=== PATIENT | female | born 1960 | race African-American/Black ===

== ENCOUNTER 2019-04-02 22:01 | Emergency (ER) | payer OTHER, MEDICAID ==
[~2019-04-02] VITALS: Ht 170.2 cm; Wt 90.7 kg
[~2019-04-02 22:01] MED LIST: CITA10TA59 PO; CYCL-181 PO; FURO40TA4 PO; HYDR-1421; IBUP800T24 PO; POTA8TAB2 PO; TRAM50TA2 PO
[2019-04-02 22:16] VITALS: BP 152/86
[2019-04-02] MEDS ORDERED: ACETAMINOPHEN 500 MG TAB PO ONE (23:00)
== END 2019-04-03 00:37 | disposition home or self-care (01) ==
LOC: EDBD 22:01 → ER 22:01
DX: S63.502A Unspecified sprain of left wrist, initial encounter (principal); S73.102A Unspecified sprain of left hip, initial encounter; Z88.0 Allergy status to penicillin; Z79.899 Other long term (current) drug therapy; W18.39XA Other fall on same level, initial encounter; Y93.89 Activity, other specified; Y99.8 Other external cause status; Y92.89 Other specified places as the place of occurrence of the external cause
CPT/HCPCS: 73110; 73502

== ENCOUNTER 2023-04-11 16:11 | Emergency (ER) | payer OTHER, MEDICAID ==
[~2023-04-11] VITALS: Ht 165.1 cm; Wt 98.0 kg
[~2023-04-11 16:11] MED LIST changes: -CITA10TA59 PO; +CITA10TA8 PO; +IBUP-1456 PO; -IBUP800T24 PO; -POTA8TAB2 PO; +POTA8TAB38 PO
[2023-04-11] MEDS ORDERED: HYDROcodone-ACET 10/325MG TAB PO ONE ×2 (16:45→23:30)
[2023-04-11 21:15] VITALS: PULSE 74; RESP 16; O2SAT 98
[2023-04-11 23:06] VITALS: BP 123/67; PULSE 97; RESP 20; TEMP 98.3; O2SAT 100
== END 2023-04-11 23:34 | disposition short-term general hospital (02) ==
LOC: ER 16:11
DX: S12.590A Other displaced fracture of sixth cervical vertebra, initial encounter for closed fracture (principal); S12.690A Other displaced fracture of seventh cervical vertebra, initial encounter for closed fracture; I10 Essential (primary) hypertension; F32.9 Major depressive disorder, single episode, unspecified; Z86.2 Personal history of diseases of the blood and blood-forming organs and certain disorders involving the immune mechanism; W18.2XXA Fall in (into) shower or empty bathtub, initial encounter; Y93.89 Activity, other specified; Y92.89 Other specified places as the place of occurrence of the external cause; Y99.8 Other external cause status
CPT/HCPCS: 70450; 72125; 72128

== ENCOUNTER 2024-04-17 11:42 | Inpatient (IN) | payer OTHER, MEDICAID ==
[~2024-04-17] VITALS: Ht 162.6 cm; Wt 91.7 kg
[2024-04-17] MEDS: ONDANSETRON HCL 4 MG/2 ML VIAL IV ONE (12:24)
[2024-04-17] MEDS: MORPHINE SULFATE 4 MG/ML SYR/VIAL IV ONE (12:25)
[2024-04-17 13:17] LABS: Basophils # (auto) 0 10 ^3/uL (0-0.2); Basophils % (auto) 0.2 % (0.0-2.0); Eosinophils # (auto) 0 10 ^3/uL (0-0.8); Eosinophils % (auto) 0.1 % (0.0-7.0); Hematocrit 35.4 % (36.0-46.0); Hemoglobin 11.6 g/dL (12.2-16.2); Lymphocytes # (auto) 0.5 10 ^3/uL (0.4-5.4); Lymphocytes % (auto) 5.8 % (10.0-50.0); Mean Corpuscular Hgb Conc. 32.8 g/dL (32.0-36.0); Mean Corpuscular Volume 88.5 fL (80.0-100.0); Monocytes # (auto) 0.1 10 ^3/uL (0-1.3); Monocytes % (auto) 0.8 % (0.0-12.0); Neutrophils # (auto) 7.8 10 ^3/uL (1.6-8.6); Neutrophils % (auto) 93.1 % (37.0-80.0); Platelet Count (auto) 234 10^3/uL (140-450); Red Cell Distribution Width 15.2 % (11.8-14.3); White Blood Cell 8.4 10^3/uL (4.4-10.8)
[2024-04-17 13:40] LABS: Alanine Aminotransferase 32 U/L (7-40); Albumin 4.7 g/dL (3.2-4.8); Alkaline Phosphatase 66 U/L (46-116); Anion Gap 11 (5-15); Aspartate Aminotransferase 32 U/L (13-40); Bilirubin, Total 0.2 mg/dL (0.2-1.0); Blood Urea Nitrogen 25 mg/dL (9-23); Calcium 10.3 mg/dL (8.7-10.4); Carbon Dioxide 20 mmol/L (20-31); Chloride 108 mmol/L (98-107); Glucose 122 mg/dL (74-106); Lipase 38 U/L (12-53); Potassium 3.6 mmol/L (3.5-5.1); Sodium 139 mmol/L (136-145); Total Protein 7.6 g/dL (5.7-8.2)
[2024-04-17 13:44] LABS: Urine Bacteria None Seen /hpf (None Seen)
[2024-04-17 14:10] LABS: Urine Blood Negative /uL (Negative); Urine Clarity Clear (Clear); Urine Color Dark-Orange (Yellow); Urine Mucus FEW (None Seen); Urine Protein, UAD TRACE (Negative); Urine Specific Gravity 1.023 (1.001-1.035); Urine Urobilinogen 8 mg/dL (Negative); Urine WBC 3 /hpf (0 - 5)
[2024-04-17 16:36] VITALS: PULSE 86; RESP 18; O2SAT 95
[2024-04-17] MEDS ORDERED: ONDANSETRON HCL 4 MG/2 ML VIAL IV PRN (17:45)
[2024-04-17] MEDS ORDERED: ACETAMINOPHEN 325 MG TAB PO PRN (17:45)
[2024-04-17] MEDS: SODIUM CHLORIDE 0.9% 1,000 ML IV ONE (18:18)
[2024-04-17] MEDS: SODIUM CHLORIDE 0.9% 1,000 ML IV SCH (19:10)
[2024-04-17] MEDS: HYDROcodone-ACET 5/325MG TAB PO PRN (19:14)
[2024-04-17 20:00] VITALS: RESP 20
[2024-04-17 22:00] VITALS: BP 146/64; PULSE 80; RESP 18; RESP 19; TEMP 98.2; O2SAT 98
[2024-04-18 01:00] VITALS: BP 143/70; PULSE 76; RESP 17; TEMP 98.4; O2SAT 98
[2024-04-18 05:00] VITALS: BP 123/52; PULSE 88; RESP 17; TEMP 98.1; O2SAT 93
[2024-04-18 06:18] LABS: Alanine Aminotransferase 37 U/L (7-40); Albumin 4.5 g/dL (3.2-4.8); Alkaline Phosphatase 68 U/L (46-116); Anion Gap 11 (5-15); Aspartate Aminotransferase 36 U/L (13-40); BUN/Creatinine Ratio 23.5 (10.0-20.0); Bilirubin, Total 0.3 mg/dL (0.2-1.0); Blood Urea Nitrogen 20 mg/dL (9-23); Calcium 9.9 mg/dL (8.7-10.4); Carbon Dioxide 19 mmol/L (20-31); Chloride 109 mmol/L (98-107); Glucose 103 mg/dL (74-106); Potassium 4.6 mmol/L (3.5-5.1); Sodium 139 mmol/L (136-145); Total Protein 7.2 g/dL (5.7-8.2)
[2024-04-18 06:27] LABS: Basophils # (auto) 0 10 ^3/uL (0-0.2); Basophils % (auto) 0.1 % (0.0-2.0); Eosinophils # (auto) 0 10 ^3/uL (0-0.8); Eosinophils % (auto) 0.3 % (0.0-7.0); Hematocrit 40.5 % (36.0-46.0); Hemoglobin 12.6 g/dL (12.2-16.2); Lymphocytes # (auto) 0.8 10 ^3/uL (0.4-5.4); Mean Corpuscular Hgb Conc. 31.2 g/dL (32.0-36.0); Mean Corpuscular Volume 93.1 fL (80.0-100.0); Monocytes # (auto) 0.9 10 ^3/uL (0-1.3); Monocytes % (auto) 5.2 % (0.0-12.0); Neutrophils # (auto) 14.7 10 ^3/uL (1.6-8.6); Neutrophils % (auto) 89.4 % (37.0-80.0); Platelet Count (auto) 260 10^3/uL (140-450); Red Blood Cells 4.35 10^6/uL (4.0-5.20); Red Cell Distribution Width 15.9 % (11.8-14.3); White Blood Cell 16.4 10^3/uL (4.4-10.8)
[2024-04-18 09:00] VITALS: BP 124/52; PULSE 93; RESP 18; TEMP 98.6; O2SAT 97
[2024-04-18] MEDS: PANTOPRAZOLE 40 MG/10 ML VIAL INJ IV ONE (10:00)
[2024-04-18] MEDS: PANTOPRAZOLE 40 MG/10 ML VIAL INJ IV SCH (11:06)
[2024-04-18] MEDS: CITALOPRAM HYDROBR 20 MG TAB PO SCH (11:07)
[2024-04-18] MEDS: PIPERACILLIN-TAZOB 3.375GM 100 ML IV SCH (11:10)
[2024-04-18 11:11] LABS: Free T3 2.63 pg/mL (2.3-4.2)
[2024-04-18 11:12] LABS: Free T4 (Free Thyroxine) 1.16 ng/dL (0.89-1.76)
[2024-04-18 13:00] VITALS: BP 128/68; PULSE 95; RESP 18; TEMP 97.7; O2SAT 99
[2024-04-18 16:59] LABS: INR 1.12 (0.9-1.15); Partial Thromboplastin Time 42.7 SEC (24.5-34.5); Prothrombin Time 11.8 sec (9.3-11.8)
[2024-04-18 17:00] VITALS: BP 129/62; PULSE 83; RESP 18; TEMP 98.3; O2SAT 98
[2024-04-18 21:00] VITALS: BP 125/70; PULSE 70; RESP 19; TEMP 98.1; O2SAT 98
[2024-04-19] VITALS (8 sets, daily range): BP systolic 123–160; BP diastolic 62–84; PULSE 18–98; RESP 18–20; TEMP 98.1–98.6; O2SAT 97–100
[2024-04-19] MEDS: ENOXAPARIN SOD 40 MG/0.4 ML SYRINGE SC SCH (09:18)
[2024-04-19] MEDS: LOSARTAN POTASSIUM 25 MG TAB PO SCH (09:19)
[2024-04-19 10:37] LABS: Basophils # (auto) 0 10 ^3/uL (0-0.2); Basophils % (auto) 0.3 % (0.0-2.0); Eosinophils # (auto) 0.1 10 ^3/uL (0-0.8); Eosinophils % (auto) 0.9 % (0.0-7.0); Hematocrit 32.7 % (36.0-46.0); Lymphocytes # (auto) 1.2 10 ^3/uL (0.4-5.4); Lymphocytes % (auto) 16.1 % (10.0-50.0); Mean Corpuscular Hemoglobin 29.2 pg (28.0-32.0); Mean Corpuscular Hgb Conc. 33.6 g/dL (32.0-36.0); Mean Corpuscular Volume 86.9 fL (80.0-100.0); Monocytes # (auto) 0.5 10 ^3/uL (0-1.3); Monocytes % (auto) 6.1 % (0.0-12.0); Neutrophils # (auto) 5.9 10 ^3/uL (1.6-8.6); Neutrophils % (auto) 76.6 % (37.0-80.0); Nucleated Red Blood Cells % 0.1 %; Platelet Count (auto) 259 10^3/uL (140-450); Red Blood Cells 3.77 10^6/uL (4.0-5.20); Red Cell Distribution Width 15.2 % (11.8-14.3); White Blood Cell 7.7 10^3/uL (4.4-10.8)
[2024-04-19 10:52] LABS: Chloride 106 mmol/L (98-107); Potassium 3.5 mmol/L (3.5-5.1); Sodium 137 mmol/L (136-145)
[2024-04-19 10:53] LABS: Anion Gap 7 (5-15); Calcium 9.4 mg/dL (8.7-10.4); Carbon Dioxide 24 mmol/L (20-31)
[2024-04-19 10:58] LABS: BUN/Creatinine Ratio 12.4 (10.0-20.0); Blood Urea Nitrogen 11 mg/dL (9-23); Glucose 96 mg/dL (74-106)
[2024-04-19] MEDS ORDERED: HYDROCORTISONE 2.5% TOPICAL CREAM 30GM TUBE PR PRN (14:00)
[2024-04-19] MEDS: DICYCLOMINE HCL 10 MG CAP PO PRN (22:32)
[2024-04-20 01:00] VITALS: BP 143/47; PULSE 82; RESP 18; TEMP 98.3; O2SAT 97
[2024-04-20 05:00] VITALS: BP 128/65; PULSE 78; RESP 18; TEMP 98.9; O2SAT 97
[2024-04-20 08:00] VITALS: PULSE 20; RESP 20
[2024-04-20 08:56] VITALS: BP 138/71; PULSE 73; RESP 21; TEMP 98.1; O2SAT 100
[2024-04-20] MEDS ORDERED: METR-344 PO (12:09)
[2024-04-20] MEDS ORDERED: LEVO750T40 PO (12:09)
[2024-04-20] MEDS ORDERED: METH4PAK PO (12:09)
[2024-04-20 13:00] VITALS: BP 142/84; PULSE 71; RESP 18; TEMP 98.3; O2SAT 98
[2024-04-20 15:48] VITALS: BP 138/71; PULSE 71; RESP 18; TEMP 36.8; O2SAT 98
== END 2024-04-20 16:22 | disposition home or self-care (01) | DRG 392 ==
LOC: EDBD 11:42 → ER 11:48 → OVERFLOW 17:37 → CENTRAL 17:37
PROVIDERS: ADMIT Internal Medicine; ATTEND Internal Medicine
DX: A08.4 Viral intestinal infection, unspecified (principal); K80.00 Calculus of gallbladder with acute cholecystitis without obstruction; I50.32 Chronic diastolic (congestive) heart failure; E86.0 Dehydration; F32.A Depression, unspecified; E11.9 Type 2 diabetes mellitus without complications; E78.5 Hyperlipidemia, unspecified; F41.9 Anxiety disorder, unspecified; I11.0 Hypertensive heart disease with heart failure; K82.8 Other specified diseases of gallbladder; E05.90 Thyrotoxicosis, unspecified without thyrotoxic crisis or storm; Z88.0 Allergy status to penicillin; Z98.51 Tubal ligation status; Z82.0 Family history of epilepsy and other diseases of the nervous system; Z80.42 Family history of malignant neoplasm of prostate; N28.89 Other specified disorders of kidney and ureter
CPT/HCPCS: 36415; 71045; 74176; 76705; 80048; 80053; 81001; 82270; 82306; 82550; 82607; 83036; 83690; 84439; 84443; 84481; 85025; 85048; 85610; 85730; 87081; 87493; 93005; G0378; J2405; J2470; J2543